=== PATIENT | male | born 1990 | race American Indian/Alaskan Native ===

== ENCOUNTER 2022-04-08 19:04 | Emergency (ER) | payer SELFPAY ==
[2022-04-08 19:52] VITALS: BP 109/68
--- NOTE | 2022-04-08 20:31 | XRay Report ---
LEFT KNEE 3 VIEW(S) INDICATION / CLINICAL INFORMATION: PAIN COMPARISON: None available. FINDINGS: BONES / JOINT(S): No acute fracture or subluxation. No significant arthritis. SOFT TISSUES: No significant abnormality. ADDITIONAL FINDINGS: None. Signer Name: Van Potts MD Signed: 04/08/2022 8:27 PM Workstation Name: [id number]
== END 2022-04-09 00:15 | disposition left against medical advice (07) ==
LOC: ED 19:04
DX: M25.569 Pain in unspecified knee (principal); Z53.21 Procedure and treatment not carried out due to patient leaving prior to being seen by health care provider